=== PATIENT | female | born 1995 | race Caucasian/White ===

== ENCOUNTER 2017-03-18 21:39 | Emergency (ER) | payer MEDICAID ==
[~2017-03-18] VITALS: Ht 165.1 cm; Wt 55.0 kg
[~2017-03-18 21:39] MED LIST: IBUP800T23 PO; ROBA500T PO
[2017-03-18 21:51] VITALS: BP 132/78; PULSE 87; RESP 20; TEMP 97.8; O2SAT 100
[2017-03-18 22:01] VITALS: BP 116/69; PULSE 85; RESP 18; TEMP 98.8; O2SAT 100
[2017-03-19] MEDS ORDERED: KETOROLAC TROMETHAMINE 30 MG/ML (IVP) VIAL IVP ONE (00:15)
--- NOTE | 2017-03-19 00:24 | PD ---
HPI Chief Complaint: Alcohol/Drug Intoxication Time Seen by Provider: 22:50 Travel History International Travel<30 days: No Contact w/Intl Traveler<30days: No Traveled to known affect area: No History of Present Illness HPI To 21 year-old woman presents emergency department for medical evaluation for psychiatric and IV drug abuse treatment. She is under a Car today order for involuntary treatment. She was taken to [facility] for sent here after was revealed that she has partially treated with endocarditis. She reports that in January she was in [facility] were she completed inpatient IV antibiotics, but only about 30-45 days of an anticipated 60 day outpatient treatment regimen for IV antibiotics. She states she started using again and was to "dope sick" or "high" to go get her antibiotics. She does endorse subjective chills over the past several days. History Past Medical History Narrative Medical Active IV drug use History of recent endocarditis, partially treated Tetanus Vaccination: Unknown Influenza Vaccination: No : 1 Para: 1 Social History Alcohol Use: No Tobacco Use: Yes (1 PPD) Allergies-Medications (Allergen,Severity, Reaction): Coded Allergies: No Known Allergies (Verified , 03/18/17) Reported Meds & Prescriptions Reported Meds & Active Scripts Active No Active Prescriptions or Reported Medications Review of Systems Except as stated in HPI: all other systems reviewed are Neg Physical Exam Narrative GENERAL: 21 year-old woman, no acute distress. SKIN: Focused skin assessment warm/dry. NECK: Trachea midline. No JVD. CARDIOVASCULAR: Regular rate and rhythm. Soft blowing systolic murmur. RESPIRATORY: No accessory muscle use. Clear to auscultation. Breath sounds equal bilaterally. GASTROINTESTINAL: Abdomen soft, non-tender, nondistended. Hepatic and splenic margins not palpable. MUSCULOSKELETAL: No obvious deformities. No edema. NEUROLOGICAL: Awake and alert. No obvious cranial nerve deficits. Motor grossly within normal limits. Normal speech. PSYCHIATRIC: Appropriate mood and affect; insight and judgment normal. Data Data Last Documented VS Vital Signs Date Time Temp Pulse Resp B/P Pulse Ox O2 Delivery O2 Flow Rate FiO2 03/18/17 22:02 85 03/18/17 22:01 98.8 18 116/69 100 Orders Complete Blood Count With Diff (03/18/17 22:50) Comprehensive Metabolic Panel (03/18/17 22:50) Westergren Sedimentation Rate (03/18/17 22:50) C-Reactive Protein (Crp) (03/18/17 22:50) Iv Access Insert/Monitor (03/18/17 22:50) Blood Culture (03/18/17 22:50) Drug Screen, Random Urine (03/19/17 00:04) Ed Urine Pregnancytest Poc (03/19/17 00:04) Ketorolac Inj (Toradol Inj) (03/19/17 00:15) Chest, Single Ap (03/19/17 ) Labs Laboratory Tests Test 03/18/17 03/19/17 23:34 00:06 White Blood Count 7.1 TH/MM3 Red Blood Count 4.31 MIL/MM3 Hemoglobin 12.2 GM/DL Hematocrit 35.8 % Mean Corpuscular Volume 83.0 FL Mean Corpuscular Hemoglobin 28.4 PG Mean Corpuscular Hemoglobin 34.2 % Concent Red Cell Distribution Width 14.5 % Platelet Count 198 TH/MM3 Mean Platelet Volume 9.9 FL Neutrophils (%) (Auto) 57.3 % Lymphocytes (%) (Auto) 30.9 % Monocytes (%) (Auto) 8.6 % Eosinophils (%) (Auto) 2.7 % Basophils (%) (Auto) 0.5 % Neutrophils # (Auto) 4.1 TH/MM3 Lymphocytes # (Auto) 2.2 TH/MM3 Monocytes # (Auto) 0.6 TH/MM3 Eosinophils # (Auto) 0.2 TH/MM3 Basophils # (Auto) 0.0 TH/MM3 CBC Comment DIFF FINAL Differential Comment Erythrocyte Sedimentation Rate 25 mm/hr Sodium Level 138 MEQ/L Potassium Level 4.2 MEQ/L Chloride Level 105 MEQ/L Carbon Dioxide Level 26.2 MEQ/L Anion Gap 7 MEQ/L Blood Urea Nitrogen 17 MG/DL Creatinine 0.82 MG/DL Estimat Glomerular Filtration 88 ML/MIN Rate Random Glucose 94 MG/DL Calcium Level 8.9 MG/DL Total Bilirubin 0.2 MG/DL Aspartate Amino Transf 25 U/L (AST/SGOT) Alanine Aminotransferase 16 U/L (ALT/SGPT) Alkaline Phosphatase 62 U/L C-Reactive Protein 0.59 MG/DL Total Protein 7.8 GM/DL Albumin 3.5 GM/DL Urine Opiates Screen POS Urine Barbiturates Screen NEG Urine Amphetamines Screen NEG Urine Benzodiazepines Screen NEG Urine Cocaine Screen POS Urine Cannabinoids Screen POS [facility] Medical Decision Making Medical Screen Exam Complete: Yes Emergency Medical Condition: Yes Interpretation(s) LABS: CBC unremarkable. Sed Rate 25 BMP unremarkable. CRP 0.59. Coags positive for opiates, cocaine, cannabinoids. Chest x-ray negative. Differential Diagnosis Active IV drug use, depression, endocarditis or bacteremia, other Narrative Course Medical decision-making 21 year-old woman presents to the emergency department under an ex-Parte order for involuntary treatment sent to the ED because of history of recent partially treated endocarditis. Patient looks generally well. She has ever murmur. No fever. No tachycardia. We'll check labs, cultures, inflammatory markers. If negative, we'll medically clear for psych. If abnormal, will admit to medicine and psychiatric consult. FINAL: CBC normal, inflmatory markers with minimal elevation. Medically clear for substance abuse treatment. Recommend outpatient follow up. Will call if cultures positive. Diagnosis Primary Impression: Substance abuse Scripts No Active Prescriptions or Reported Meds Sherman Gonzalez MD Mar 19, 2017 00:24
[2017-03-19 00:35] LABS: AUTOMATED NEUTROPHIL # 4.1 TH/MM3 (1.8-7.7); BASOPHIL % 0.5 % (0.0-2.0); EOSINOPHIL # 0.2 TH/MM3 (0-0.4); EOSINOPHIL % 2.7 % (0.0-4.0); HEMATOCRIT 35.8 % (35.0-46.0); HEMO FLAGS DIFF FINAL; LYMPH % 30.9 % (9.0-44.0); LYMPHOCYTE # 2.2 TH/MM3 (1.0-4.8); MEAN CORPUSCULAR HEMOGLOBIN 28.4 PG (27.0-34.0); MEAN CORPUSCULAR HGB CONC 34.2 % (32.0-36.0); MONO % 8.6 % (0.0-8.0); NEUT % 57.3 % (16.0-70.0); PLATELET COUNT 198 TH/MM3 (150-450); RED BLOOD COUNT 4.31 MIL/MM3 (4.00-5.30); RED CELL DISTRIBUTION WIDTH 14.5 % (11.6-17.2); WHITE BLOOD COUNT 7.1 TH/MM3 (4.0-11.0)
[2017-03-19 00:42] LABS: AMPHETAMINE, URINE NEG (NEG); BARBITURATES, URINE NEG (NEG); COCAINE, URINE POS (NEG)
[2017-03-19 00:56] LABS: ALT (GPT) 16 U/L (10-53)
[2017-03-19 00:58] LABS: ALKALINE PHOSPHATASE 62 U/L (45-117); ANION GAP 7 MEQ/L (5-15); AST (GOT) 25 U/L (15-37); BICARBONATE 26.2 MEQ/L (21.0-32.0); BLOOD UREA NITROGEN 17 MG/DL (7-18); CHLORIDE 105 MEQ/L (98-107); GLOMERULAR FILTRATION RATE 88 ML/MIN (>89); POTASSIUM 4.2 MEQ/L (3.5-5.1); SODIUM (NA) 138 MEQ/L (136-145); TOTAL BILIRUBIN ADULT 0.2 MG/DL (0.2-1.0)
--- NOTE | 2017-03-19 01:05 | RADRPT ---
EXAM DATE/TIME: 03/19/2017 00:50 [place] COMPARISON: No previous studies available for comparison. INDICATIONS : Short of breath. MEDICAL HISTORY : None. SURGICAL HISTORY : None. ENCOUNTER: Initial ACUITY: 1 day PAIN SCORE: 0/10 LOCATION: Bilateral chest FINDINGS: A single view of the chest demonstrates the lungs to be symmetrically aerated without evidence of mas s, infiltrate or effusion. The cardiomediastinal contours are unremarkable. Osseous structures are intact. CONCLUSION: No acute disease. Wiliam Serna MD on March 19, 2017 at 1:04 Board Certified Radiologist. This report was verified electronically.
[2017-03-19 05:57] VITALS: BP 108/58; PULSE 77; RESP 16
[2017-03-19 07:00] VITALS: BP 112/62; PULSE 74; RESP 16; TEMP 98; O2SAT 99
[2017-03-19 15:35] VITALS: BP 112/62; TEMP 98.3
--- NOTE | 2017-03-19 15:40 | PD ---
History of Present Illness Chief Complaint: Alcohol/Drug Intoxication Time Seen by Provider: 15:45 Travel History International Travel<30 Days: No Contact w/Intl Traveler<30days: No Known affected area: No Legal Status Legal Status: Ex Parte José Act Signed By: [facility] History of Present Illness: 21-year-old female with self-admitted history of drug abuse, including IV drug abuse. She is currently in the midst of a two-month regimen of IV antibiotic therapy for endocarditis. She lives with her mother but his supported by both her mother and her grandmother who live locally. She also has a 4-year-old child. She interrupted her antibiotic therapy because she started using drugs again and currently admits to polysubstance abuse. She was seen at [facility] earlier today but not accepted there because of her IV antibiotic therapy. Currently, the patient denies any suicidal or homicidal ideation, plan or intent. She would like to finish her IV antibiotic therapy. She feels supported by her mother and grandmother but does not understand why her mother initiated this ex-partake order. This physician feels, after evaluation, the patient should continue with IV antibiotic therapy prior to attempting any detox or rehabilitation. PFSH Past Medical History ADHD: No Anxiety: Yes Depression: Yes Cancer: No Cardiovascular Problems: Yes Diabetes: No Diminished Hearing: No Musculoskeletal: Yes (CHRONIC BACK PAIN) Psychiatric: No Immunizations Current: Yes Migraines: No Seizures: No Thyroid Disease: No Ulcer: No Tetanus Vaccination: Unknown Influenza Vaccination: No ?: Unknown : 1 Para: 1 Miscarriage: 0 : 0 Past Surgical History Other Surgery: No Psychiatric History Psychiatric History Hx Psychiatric Treatment: DEPRESSION/ANXIETY History of Inpatient Treatment: No Guns or firearms in home: No Social History Hx Alcohol Use: No Hx Tobacco Use: Yes (1 PPD) Hx Substance Use: Yes Substance Use Type: Crack, Marijuana, Cocaine, Synth Opiates-Pain Pills Other Substances Used: PT. ONLY ADMITS TO [facility] DAILY Hx of Substance Use Treatment: Yes Allergies-Medications (Allergen,Severity, Reaction): Coded Allergies: No Known Allergies (Verified , 03/18/17) Reported Meds & Prescriptions Reported Meds & Active Scripts Active No Active Prescriptions or Reported Medications Review of Systems Except as stated in HPI: all other systems reviewed are Neg Exam Alert: Yes [place]: Person, Place, Date, Situation Mood: Calm Affect: Appropriate Speech: Clear, Logical Eye Contact: Normal Memory Intact: Immediate, Recent, Remote Insight/Judgement Adequate MDM Medical Decision Making Medical Record Reviewed: Yes Assessment/Plan Patient's chart was reviewed and this physician spoke with the patient's nurse regarding her condition. This physician feels strongly the patient needs to continue to undergo IV antibiotic therapy to prevent her endocarditis from causing greater cardiac arm. Patient agrees with this assessment and wants to continue with outpatient IV therapy. At this time, this physician does not feel the patient should be admitted for detox and rehabilitation. She furthermore does not qualify for psychiatric hospitalization. She is not suicidal or homicidal and she is able to care for herself and wants to care for herself. Therefore, her ex-partner he is being discontinued and she is being discharged home. Orders Complete Blood Count With Diff (03/18/17 22:50) Comprehensive Metabolic Panel (03/18/17 22:50) Westergren Sedimentation Rate (03/18/17 22:50) C-Reactive Protein (Crp) (03/18/17 22:50) Iv Access Insert/Monitor (03/18/17 22:50) Blood Culture (03/18/17 22:50) Drug Screen, Random Urine (03/19/17 00:04) Ed Urine Pregnancytest Poc (03/19/17 00:04) Ketorolac Inj (Toradol Inj) (03/19/17 00:15) Chest, Single Ap (03/19/17 ) Diet Regular Basic (03/19/17 Breakfast) Psych Screen (03/19/17 07:33) Diet Regular Basic (03/19/17 Dinner) Results Vital Signs Date Time Temp Pulse Resp B/P Pulse Ox O2 Delivery O2 Flow Rate FiO2 03/19/17 07:00 Room Air 03/19/17 07:00 98.0 74 16 112/62 99 Room Air 03/19/17 05:57 77 16 108/58 Room Air 03/18/17 22:02 85 03/18/17 22:01 98.8 85 18 116/69 100 03/18/17 21:51 97.8 87 20 132/78 100 Laboratory Tests Test 03/18/17 03/19/17 23:34 00:06 White Blood Count 7.1 Red Blood Count 4.31 Hemoglobin 12.2 Hematocrit 35.8 Mean Corpuscular Volume 83.0 Mean Corpuscular Hemoglobin 28.4 Mean Corpuscular Hemoglobin 34.2 Concent Red Cell Distribution Width 14.5 Platelet Count 198 Mean Platelet Volume 9.9 Neutrophils (%) (Auto) 57.3 Lymphocytes (%) (Auto) 30.9 Monocytes (%) (Auto) 8.6 Eosinophils (%) (Auto) 2.7 Basophils (%) (Auto) 0.5 Neutrophils # (Auto) 4.1 Lymphocytes # (Auto) 2.2 Monocytes # (Auto) 0.6 Eosinophils # (Auto) 0.2 Basophils # (Auto) 0.0 CBC Comment DIFF FINAL Differential Comment Erythrocyte Sedimentation Rate 25 Sodium Level 138 Potassium Level 4.2 Chloride Level 105 Carbon Dioxide Level 26.2 Anion Gap 7 Blood Urea Nitrogen 17 Creatinine 0.82 Estimat Glomerular Filtration 88 Rate Random Glucose 94 Calcium Level 8.9 Total Bilirubin 0.2 Aspartate Amino Transf 25 (AST/SGOT) Alanine Aminotransferase 16 (ALT/SGPT) Alkaline Phosphatase 62 C-Reactive Protein 0.59 Total Protein 7.8 Albumin 3.5 Urine Opiates Screen POS Urine Barbiturates Screen NEG Urine Amphetamines Screen NEG Urine Benzodiazepines Screen NEG Urine Cocaine Screen POS Urine Cannabinoids Screen POS Date/Time Procedure Status Source Growth 03/18/17 23:55 Aerobic Blood Culture Received Blood Peripheral Pending 03/18/17 23:55 Anaerobic Blood Culture Received Blood Peripheral Pending Diagnosis Primary Impression: Adjustment disorder with mixed disturbance of emotions and conduct Additional Impression: Opiate abuse, continuous Departure Forms: Tests/Procedures Patient Instructions: General Instructions, Cocaine Abuse (ED), Narcotic Abuse (ED) Additional Instructions: DISCHARGE HOME DIAGNOSIS OPIATE AND COCAINE ABUSE FOLLOW-UP WITH PCP TO COMPLETE YOUR IV ANTIBIOTICS FOR ENDOCARDITIS. THIS IS NEEDED IN ORDER TO GET INTO A DRUG TREATMENT PROGRAM RETURN TO ED FOR WORSENING PROBLEMS Prescriptions No Active Prescriptions or Reported Meds Disposition: 01 DISCHARGE HOME Condition: Stable Problem Qualifiers Nicolás Neal MD Mar 19, 2017 15:40
== END 2017-03-19 16:17 | disposition home or self-care (01) ==
LOC: NEPD 21:39 → NEPJ 03-19 16:17
DX: Z02.89 Encounter for other administrative examinations (principal); F43.29 Adjustment disorder with other symptoms; F11.10 Opioid abuse, uncomplicated; I38 Endocarditis, valve unspecified; Z79.2 Long term (current) use of antibiotics; F17.290 Nicotine dependence, other tobacco product, uncomplicated
CPT/HCPCS: 71010; 80053; 80307; 84703; 85025; 85652; 86140; 87040; 96374; 99284; J1885

== ENCOUNTER 2017-04-21 12:15 | Emergency (ER) | payer SELFPAY ==
[~2017-04-21] VITALS: Ht 165.1 cm; Wt 60.0 kg
[2017-04-21 12:17] VITALS: BP 109/58; PULSE 72; RESP 20; TEMP 97.7; O2SAT 99
--- NOTE | 2017-04-21 12:55 | PD ---
HPI Chief Complaint: Electronics [employer] Problem/Complaint Time Seen by Provider: 12:33 Travel History International Travel<30 days: No Contact w/Intl Traveler<30days: No Traveled to known affect area: No History of Present Illness HPI The patient was seen and examined in the presence of the nurse. This patient complains of vaginal discharge and some pelvic cramping. She has history of chlamydia and fears it may have returned. She denies fever. Symptoms severity is moderate. No alleviating factors. Duration 2 days PFSH Past Medical History ADHD: No Anxiety: Yes Depression: Yes Cancer: No Cardiovascular Problems: Yes Diabetes: No Diminished Hearing: No Musculoskeletal: Yes (CHRONIC BACK PAIN) Psychiatric: No Immunizations Current: Yes Migraines: No Seizures: No Thyroid Disease: No Ulcer: No ?: Not : 1 Para: 1 Miscarriage: 0 : 0 Past Surgical History Other Surgery: No Social History Alcohol Use: No Tobacco Use: Yes (1 PPD) Substance Use: Yes Allergies-Medications (Allergen,Severity, Reaction): Coded Allergies: No Known Allergies (Verified , 03/18/17) Reported Meds & Prescriptions Reported Meds & Active Scripts Active No Active Prescriptions or Reported Medications Review of Systems General / Constitutional: No: Fever Eyes: No: Visual changes HENT: No: Headaches Cardiovascular: No: Chest Pain or Discomfort Respiratory: No: Shortness of Breath Gastrointestinal: No: Abdominal Pain Genitourinary: Positive: Pelvic Pain, Discharge, No: Dysuria Musculoskeletal: No: Pain Skin: No Rash Neurologic: No: Weakness Psychiatric: No: Depression Endocrine: No: Polydipsia Hematologic/Lymphatic: No: Easy Bruising Physical Exam Narrative GENERAL: Well-nourished, well-developed patient in no apparent distress. SKIN: Focused skin assessment reveals no rash and nodules. Skin is Warm and dry. HEAD: Atraumatic. Normocephalic. EYES: Pupils equal and round. No scleral icterus. No injection or drainage. ENT: No nasal bleeding or discharge. Mucous membranes pink and moist. NECK: Trachea midline. No JVD. CARDIOVASCULAR: Regular rate and rhythm. No murmur appreciated. RESPIRATORY: No accessory muscle use. Clear to auscultation. Breath sounds equal bilaterally. GASTROINTESTINAL: Abdomen soft, non-tender, nondistended. Hepatic and splenic margins not palpable. MUSCULOSKELETAL: No obvious deformities. No clubbing. No cyanosis. No edema. NEUROLOGICAL: Awake and alert. No obvious cranial nerve deficits. Motor grossly within normal limits. Normal speech. PSYCHIATRIC: Appropriate mood and affect; insight and judgment normal. Pelvic: No blood or discharge seen. No cervical motion tenderness. GC and chlamydia swab done Data Data Last Documented VS Vital Signs Date Time Temp Pulse Resp B/P (MAP) Pulse Ox O2 Delivery O2 Flow Rate FiO2 04/21/17 12:17 97.7 72 20 109/58 (75) 99 Room Air Orders Orders Gc And Chlamydia Pcr (04/21/17 12:40) Wet Prep Profile (04/21/17 12:40) Ed Urine Pregnancytest Poc (04/21/17 12:40) MDM Medical Decision Making Medical Screen Exam Complete: Yes Emergency Medical Condition: Yes Medical Record Reviewed: Yes Differential Diagnosis Chlamydia, gonorrhea, nonspecific discharge Narrative Course I have reviewed the patient's electronic medical record. Patient's been here before for vaginal complaints No objective findings on exam but she is convinced that she has Chlamydia Swab was sent but pending at time of discharge I gave her injection of Rocephin and 2 g of Zithromax Urine is negative Diagnosis Primary Impression: Vaginitis Qualified Codes: N76.0 - Acute vaginitis Additional Instructions: The patient was advised to follow up with their physician and return if they worsen. Med/Other Pt SpecificInfo: Other Scripts No Active Prescriptions or Reported Meds Disposition: 01 DISCHARGE HOME Condition: Stable Frnak Galeana MD Apr 21, 2017 12:55
[2017-04-21] MEDS ORDERED: AZITHROMYCIN PWD FOR SUSP 1 GM PACKET PO ONE (13:00)
[2017-04-21] MEDS ORDERED: LIDOCAINE HCL 1% PF 30 ML VIAL XX ONE (13:00)
[2017-04-21 16:38] LABS: CHLAMYDIA PCR NOT DETECTED (NOT DETECT); NEISSERIA PCR NOT DETECTED (NOT DETECT)
== END 2017-04-21 13:59 | disposition home or self-care (01) ==
LOC: NEPD 12:15
DX: N76.0 Acute vaginitis (principal); F17.200 Nicotine dependence, unspecified, uncomplicated
CPT/HCPCS: 84703; 87491; 87591; 96372; 99284; J0696

== ENCOUNTER 2017-05-04 11:52 | Emergency (ER) | payer SELFPAY ==
[~2017-05-04] VITALS: Ht 165.1 cm; Wt 60.0 kg
[2017-05-04 11:54] VITALS: BP 106/70; PULSE 84; RESP 20; TEMP 99.2; O2SAT 100
--- NOTE | 2017-05-04 12:00 | PD ---
Physical Exam Date Seen by Provider: May 04, 2017 Time Seen by Provider: 11:58 Narrative 21-year-old female presents to emergency Department with right dorsal lateral wrist and some pain. Pain has been ongoing and worsening over the past 3 weeks. 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 Pain is now a 7 out of 10. Patient denies numbness. It is worse with movement and gripping of the thumb. Denies fever or other symptoms. Vital signs stable. Patient is awaiting bed placement. Data Data Last Documented VS Vital Signs Date Time Temp Pulse Resp B/P (MAP) Pulse Ox O2 Delivery O2 Flow Rate FiO2 05/04/17 11:54 99.2 84 20 106/70 (82) 100 Room Air MDM Medical Record Reviewed: Yes Supervised Visit with DARYL: Yes Scripts No Active Prescriptions or Reported Meds Condition: Stable Wilbur Espinoza May 04, 2017 12:00
== END 2017-05-04 13:56 | disposition left against medical advice (07) ==
LOC: NEPD 11:52
DX: M25.531 Pain in right wrist (principal)
CPT/HCPCS: 99281

== ENCOUNTER 2018-01-19 03:06 | Emergency (ER) | payer OTHER ==
[2018-01-19 03:12] VITALS: BP 137/85; PULSE 80; RESP 16; TEMP 97.7; O2SAT 100
[2018-01-19] MEDS ORDERED: METH40TA PO (03:18)
--- NOTE | 2018-01-19 03:26 | PD ---
HPI Chief Complaint: Psychiatric Symptoms Time Seen by Provider: 03:24 Travel History International Travel<30 days: No Contact w/Intl Traveler<30days: No Traveled to known affect area: No History of Present Illness HPI 22-year-old female presents under José act [place] by the [employer]. Patient reports that she became involved in an argument with her mother and she sent some vague suicidal text to her mother. She was then placed under José act. Symptoms are moderate, aggravated by arguing with her mother with no relieving factors. During review of systems she does report chest pain. She describes as a sharp pain in the vulvar chest which is worse with deep inspiration, worse with anxiety and worse with palpation of the chest wall. This is been ongoing for the past month. She denies shortness of breath, cough , nausea, vomiting, abdominal pain, fevers. Remote history of IV drug use. She is a smoker. She also uses marijuana and methadone. No other complaints at this time. PFSH Past Medical History ADHD: No Anxiety: Yes Depression: Yes Cancer: No Cardiovascular Problems: Yes (ENDOCARDITIS) Diabetes: No Diminished Hearing: No Musculoskeletal: Yes (CHRONIC BACK PAIN) Psychiatric: No Immunizations Current: Yes Migraines: No Seizures: No Thyroid Disease: No Ulcer: No ?: Unknown : 1 Para: 1 Miscarriage: 0 : 0 Past Surgical History Surgical History: No Previous Surgery Other Surgery: No Social History Alcohol Use: No Tobacco Use: Yes (1 PPD) Substance Use: Yes (MARIJUANA) Allergies-Medications (Allergen,Severity, Reaction): Coded Allergies: No Known Allergies (Verified , 05/04/17) Reported Meds & Prescriptions Reported Meds & Active Scripts Active Reported Methadone (Methadone HCl) 40 Mg Tab 120 Mg PO DAILY Review of Systems Except as stated in HPI: all other systems reviewed are Neg Physical Exam Narrative GENERAL: Well-developed well-nourished female no acute distress SKIN: Warm and dry. HEAD: Atraumatic. Normocephalic. EYES: Pupils equal and round. No scleral icterus. No injection or drainage. ENT: No nasal bleeding or discharge. Mucous membranes pink and moist. NECK: Trachea midline. No JVD. CARDIOVASCULAR: Regular rate and rhythm. No murmur appreciated. RESPIRATORY: No accessory muscle use. Clear to auscultation. Breath sounds equal bilaterally. GASTROINTESTINAL: Abdomen soft, non-tender, nondistended. Hepatic and splenic margins not palpable. MUSCULOSKELETAL: No obvious deformities. Some tenderness to palpation of the chest wall. There is no lower extremity edema. NEUROLOGICAL: Awake and alert. No obvious cranial nerve deficits. Motor grossly within normal limits. Normal speech. PSYCHIATRIC: Appropriate mood and affect; insight and judgment normal. Data Data Last Documented VS Vital Signs Date Time Temp Pulse Resp B/P (MAP) Pulse Ox O2 Delivery O2 Flow Rate FiO2 01/19/18 03:44 99 Room Air 01/19/18 03:12 97.7 80 16 137/85 (102) Orders Orders Electrocardiogram (01/19/18 03:24) Ckmb (Isoenzyme) Profile (01/19/18 03:24) Complete Blood Count With Diff (01/19/18:24) Magnesium (Mg) (01/19/18:24) Prothrombin Time / Inr (Pt) (01/19/18:24) Act Partial Throm Time (Ptt) (01/19/18 03:24) Troponin I (01/19/18 03:24) Ecg Monitoring (01/19/18:24) Iv Access Insert/Monitor (01/19/18 03:24) Oximetry (01/19/18 03:24) Oxygen Administration (01/19/18 03:24) Sodium Chloride 0.9% Flush (Ns Flush) (01/19/18 03:30) Chest, Pa & Lat (01/19/18 03:24) Ed Urine Pregnancytest Poc (01/19/18 03:24) Thyroid Stimulating Hormone (01/19/18 03:24) Psych Screen (01/19/18 03:24) Drug Screen, Random Urine (01/19/18 03:24) Alcohol (Ethanol) (01/19/18 03:24) Beta Hcg (Quant/Titer) (01/19/18 03:24) D-Dimer (01/19/18 03:24) Comprehensive Metabolic Panel (01/19/18 03:42) CKMB (01/19/18 03:42) CKMB% (01/19/18 03:42) Sodium Polysty Sulfate Liq (Kayexalate L (01/19/18 04:45) Labs Laboratory Tests Test 01/19/18 03:42 White Blood Count 7.8 TH/MM3 Red Blood Count 4.69 MIL/MM3 Hemoglobin 13.2 GM/DL Hematocrit 38.7 % Mean Corpuscular Volume 82.4 FL Mean Corpuscular Hemoglobin 28.1 PG Mean Corpuscular Hemoglobin Concent 34.1 % Red Cell Distribution Width 14.6 % Platelet Count 179 TH/MM3 Mean Platelet Volume 9.6 FL Neutrophils (%) (Auto) 72.2 % Lymphocytes (%) (Auto) 19.1 % Monocytes (%) (Auto) 8.1 % Eosinophils (%) (Auto) 0.5 % Basophils (%) (Auto) 0.1 % Neutrophils # (Auto) 5.6 TH/MM3 Lymphocytes # (Auto) 1.5 TH/MM3 Monocytes # (Auto) 0.6 TH/MM3 Eosinophils # (Auto) 0.0 TH/MM3 Basophils # (Auto) 0.0 TH/MM3 CBC Comment DIFF FINAL Differential Comment Prothrombin Time 10.3 SEC Prothromb Time International Ratio 1.0 RATIO Activated Partial Thromboplast Time 27.3 SEC D-Dimer Quantitative (PE/DVT) 0.38 MG/L FEU Blood Urea Nitrogen 12 MG/DL Creatinine 0.85 MG/DL Random Glucose 81 MG/DL Albumin 3.7 GM/DL Calcium Level 8.6 MG/DL Magnesium Level 2.0 MG/DL Aspartate Amino Transf (AST/SGOT) 68 U/L Alanine Aminotransferase (ALT/SGPT) 36 U/L Sodium Level 136 MEQ/L Potassium Level 5.4 MEQ/L Chloride Level 107 MEQ/L Carbon Dioxide Level 19.8 MEQ/L Anion Gap 9 MEQ/L Estimat Glomerular Filtration Rate 84 ML/MIN Total Creatine Kinase 219 U/L Troponin I LESS THAN 0.02 NG/ML Thyroid Stimulating Hormone 3rd Gen 1.260 uIU/ML Human Chorionic Gonadotropin, Quant LESS THAN 1 MIU/ML Ethyl Alcohol Level LESS THAN 3 MG/DL [facility] Medical Decision Making Medical Screen Exam Complete: Yes Emergency Medical Condition: Yes Medical Record Reviewed: Yes Differential Diagnosis Adjustment reaction, acute psychosis, major depressive disorder, substance- induced mood disorder Costochondritis, pericarditis, myocarditis, pulmonary embolism, endocarditis, pleurisy, pneumothorax Narrative Course 20-year-old female presents under José act for psychiatric evaluation. She is also complaining of sharp pleuritic chest pain for the past month which is worse when she is anxious. It is reproducible with palpation of her chest wall. Her vital signs are reassuring. She is not tachycardic, hypoxic, she is afebrile. She has no appreciable murmur. No lower extremity edema. The patient was placed on ECG monitoring pulse oximetry. 12 EKG was obtained. Lab work, chest x-ray will be obtained. Mental health screening discussed with the patient. Psychiatric screen ordered. EKG reveals sinus rhythm, rate 80. CBC reveals no acute abnormalities. D- dimer is within normal limits. CMP reveals a potassium of 5.4, otherwise unremarkable. Kayexalate will be administered. Total CK is 219. Troponin is less than 0.02. TSH is within normal limits. Quantitative beta-hCG is less than 1. Alcohol level is negative. The patient's chest pain appears musculoskeletal as it is reproducible with palpation of the chest wall. Chest x- ray does not a small nodule on the lateral film which the radiologist notes could be a small area of rounded pneumonia. The patient has no clinical symptoms do not suggest pneumonia. The patient is medically cleared. Diagnosis Primary Impression: Medical clearance for psychiatric admission Dariel Yates Jan 19, 2018 03:26
[2018-01-19] MEDS ORDERED: SODIUM CHLORIDE 0.9% FLUSH 10 ML FLUSH IVF PRN (03:30)
[2018-01-19 03:44] VITALS: O2SAT 99
--- NOTE | 2018-01-19 04:07 | RADRPT ---
EXAM DATE: 01/19/2018 4:00 AM EDT AGE/SEX: 22 years / Female INDICATIONS: Chest and back pain. CLINICAL DATA: This is the patient's initial encounter. Patient reports that signs and symptoms have been present for 1 day and indicates a pain score of 5/10. MEDICAL/SURGICAL HISTORY: . Anxiety None. COMPARISON: No prior exams available for comparison. FINDINGS: PA and lateral views of the chest demonstrate the lungs to be symmetrically aerated without evidence of effusion. On the lateral film is a questionable 1.6 cm mass overlying the posterior middle medias tinum could be a pulmonary nodule, obviously unusual for a 22-year-old The cardiomediastinal contours are unremarkable. Osseous structures are intact. CONCLUSION: Small nodule on the lateral film could be a small area of rounded pneumonia. The rest of the lungs ar e clear. Electronically signed by: Sherman Coats MD 01/19/2018 4:06 AM EDT
[2018-01-19 04:10] LABS: AUTOMATED NEUTROPHIL # 5.6 TH/MM3 (1.8-7.7); BASOPHIL % 0.1 % (0.0-2.0); EOSINOPHIL % 0.5 % (0.0-4.0); HEMATOCRIT 38.7 % (35.0-46.0); HEMOGLOBIN 13.2 GM/DL (11.6-15.3); LYMPH % 19.1 % (9.0-44.0); LYMPHOCYTE # 1.5 TH/MM3 (1.0-4.8); MEAN CELL VOLUME 82.4 FL (80.0-100.0); MEAN CORPUSCULAR HEMOGLOBIN 28.1 PG (27.0-34.0); MEAN CORPUSCULAR HGB CONC 34.1 % (32.0-36.0); MEAN PLATELET VOLUME 9.6 FL (7.0-11.0); MONO % 8.1 % (0.0-8.0); MONOCYTE # 0.6 TH/MM3 (0-0.9); NEUT % 72.2 % (16.0-70.0); PLATELET COUNT 179 TH/MM3 (150-450); RED BLOOD COUNT 4.69 MIL/MM3 (4.00-5.30); RED CELL DISTRIBUTION WIDTH 14.6 % (11.6-17.2); WHITE BLOOD COUNT 7.8 TH/MM3 (4.0-11.0)
[2018-01-19 04:22] LABS: PROTHROMBIN TIME - PATIENT 10.3 SEC (9.8-11.6)
[2018-01-19 04:24] LABS: D-DIMER 0.38 MG/L FEU (0.00-0.50)
[2018-01-19 04:39] LABS: ALBUMIN 3.7 GM/DL (3.4-5.0); ALT (GPT) 36 U/L (10-53); AST (GOT) 68 U/L (15-37); BICARBONATE 19.8 MEQ/L (21.0-32.0); BLOOD UREA NITROGEN 12 MG/DL (7-18); CALCIUM 8.6 MG/DL (8.5-10.1); CHLORIDE 107 MEQ/L (98-107); CREATININE 0.85 MG/DL (0.50-1.00); GLOMERULAR FILTRATION RATE 84 ML/MIN (>89); GLUCOSE,RANDOM 81 MG/DL (74-106); SODIUM (NA) 136 MEQ/L (136-145); TROPONIN I LESS THAN 0.02 NG/ML (0.02-0.05)
[2018-01-19] MEDS ORDERED: SODIUM POLYSTYRENE SULFONATE SUSP 15 GM/60 ML CUP PO ONE (04:45)
[2018-01-19 04:49] LABS: ALKALINE PHOSPHATASE 73 U/L (45-117); TOTAL BILIRUBIN ADULT 0.4 MG/DL (0.2-1.0)
[2018-01-19 09:35] VITALS: BP 113/64; PULSE 77; RESP 18; O2SAT 97
--- NOTE | 2018-01-19 09:37 | PD ---
Physical Exam Time Seen by Provider: 09:35 Narrative Please refer to previous providers documentation for details surrounding the patient's current visit. Data Data Last Documented VS Vital Signs Date Time Temp Pulse Resp B/P (MAP) Pulse Ox O2 Delivery O2 Flow Rate FiO2 01/19/18 03:44 99 Room Air 01/19/18 03:12 97.7 80 16 137/85 (102) Orders Orders Electrocardiogram (01/19/18 03:24) Ckmb (Isoenzyme) Profile (01/19/18 03:24) Complete Blood Count With Diff (01/19/18 03:24) Magnesium (Mg) (01/19/18 03:24) Prothrombin Time / Inr (Pt) (01/19/18 03:24) Act Partial Throm Time (Ptt) (01/19/18 03:24) Troponin I (01/19/18 03:24) Ecg Monitoring (01/19/18 03:24) Iv Access Insert/Monitor (01/19/18 03:24) Oximetry (01/19/18 03:24) Oxygen Administration (01/19/18 03:24) Sodium Chloride 0.9% Flush (Ns Flush) (01/19/18 03:30) Chest, Pa & Lat (01/19/18 03:24) Ed Urine Pregnancytest Poc (01/19/18 03:24) Thyroid Stimulating Hormone (01/19/18 03:24) Psych Screen (01/19/18 03:24) Drug Screen, Random Urine (01/19/18 03:24) Alcohol (Ethanol) (01/19/18 03:24) Beta Hcg (Quant/Titer) (01/19/18 03:24) D-Dimer (01/19/18 03:24) Comprehensive Metabolic Panel (01/19/18 03:42) CKMB (01/19/18 03:42) CKMB% (01/19/18 03:42) Sodium Polysty Sulfate Liq (Kayexalate L (01/19/18 04:45) Diet Regular Basic (01/19/18 Breakfast) Ed Discharge Order (01/19/18 09:34) Labs Laboratory Tests Test 01/19/18 03:42 White Blood Count 7.8 TH/MM3 Red Blood Count 4.69 MIL/MM3 Hemoglobin 13.2 GM/DL Hematocrit 38.7 % Mean Corpuscular Volume 82.4 FL Mean Corpuscular Hemoglobin 28.1 PG Mean Corpuscular Hemoglobin Concent 34.1 % Red Cell Distribution Width 14.6 % Platelet Count 179 TH/MM3 Mean Platelet Volume 9.6 FL Neutrophils (%) (Auto) 72.2 % Lymphocytes (%) (Auto) 19.1 % Monocytes (%) (Auto) 8.1 % Eosinophils (%) (Auto) 0.5 % Basophils (%) (Auto) 0.1 % Neutrophils # (Auto) 5.6 TH/MM3 Lymphocytes # (Auto) 1.5 TH/MM3 Monocytes # (Auto) 0.6 TH/MM3 Eosinophils # (Auto) 0.0 TH/MM3 Basophils # (Auto) 0.0 TH/MM3 CBC Comment DIFF FINAL Differential Comment Prothrombin Time 10.3 SEC Prothromb Time International Ratio 1.0 RATIO Activated Partial Thromboplast Time 27.3 SEC D-Dimer Quantitative (PE/DVT) 0.38 MG/L FEU Blood Urea Nitrogen 12 MG/DL Creatinine 0.85 MG/DL Random Glucose 81 MG/DL Total Protein 8.0 GM/DL Albumin 3.7 GM/DL Calcium Level 8.6 MG/DL Magnesium Level 2.0 MG/DL Alkaline Phosphatase 73 U/L Aspartate Amino Transf (AST/SGOT) 68 U/L Alanine Aminotransferase (ALT/SGPT) 36 U/L Total Bilirubin 0.4 MG/DL Sodium Level 136 MEQ/L Potassium Level 5.4 MEQ/L Chloride Level 107 MEQ/L Carbon Dioxide Level 19.8 MEQ/L Anion Gap 9 MEQ/L Estimat Glomerular Filtration Rate 84 ML/MIN Total Creatine Kinase 219 U/L Creatine Kinase MB 1.1 NG/ML Creatine Kinase MB % 0.5 % Troponin I LESS THAN 0.02 NG/ML Thyroid Stimulating Hormone 3rd Gen 1.260 uIU/ML Human Chorionic Gonadotropin, Quant LESS THAN 1 MIU/ML Ethyl Alcohol Level LESS THAN 3 MG/DL [facility] Medical Record Reviewed: Yes Supervised Visit with DARYL: No Narrative Course Patient is seen and evaluated by medical staff, evaluated by psychiatry, José act has been lifted. She will be discharged home at this time with no further medical needs. Diagnosis Primary Impression: Medical clearance for psychiatric admission Additional Impression: Adjustment disorder with mixed disturbance of emotions and conduct Disposition: 01 DISCHARGE HOME Condition: Stable Rebecca Ho Jan 19, 2018 09:37
--- NOTE | 2018-01-19 10:19 | PD ---
History of Present Illness Chief Complaint: Psychiatric Symptoms Time Seen by Provider: 09:35 Travel History International Travel<30 Days: No Contact w/Intl Traveler<30days: No Known affected area: No History of Present Illness: Patient is a 22-year-old female who was placed under a José act by [employer]. José act states Preeti's mother Virginia Funes advised that been asked and sent her suicidal text messages and she has in the past issues with drug abuse. Testing messages were observed from Preeti 's stating "you can see me again coming to identify my corpse" and "you deserve to suffer with my on your shoulders because you are the one who pushed me here. " Preeti admitted to sending the text messages per [employer] Act. 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 She states that while she was in group home her mother obtained custody of her child. She is trying to re-establish a relationship with her daughter which is not going well with her mom. She endorses no suicidal or homicidal ideations. She states that she will go back and live with her boyfriend and continue to work on the relationship with her daughter. Chart reviewed and discussed with nurse. Patient is in a hospital gown in room D 40. She is well groomed and well kept. Fund of knowledge good. Recent and remote memory intact. Motor and gait normal. Speech for normal rate, tone and volume. Insight and Judgement good. Patient denies SI/HI. Patient is at low risk for self harm or harming others. Based on her presentation, will lift José Act. Patient is committed to continuing the Methadone program. She and her boyfriend are two month clean and they are supporting each other through the process. I did give patient information on SMA if she wants to talk to someone about her anxiety. Dx: Adjustment disorder with disturbance of mood PFSH Past Medical History Narrative Medical Currently in methadone program. No past psychiatric care. ADHD: No Anxiety: Yes Depression: Yes Cancer: No Cardiovascular Problems: Yes (ENDOCARDITIS) Diabetes: No Diminished Hearing: No Musculoskeletal: Yes (CHRONIC BACK PAIN) Psychiatric: No Immunizations Current: Yes Migraines: No Seizures: No Thyroid Disease: No Ulcer: No ?: Unknown : 1 Para: 1 Miscarriage: 0 : 0 Past Surgical History Surgical History: No Previous Surgery Other Surgery: No Psychiatric History Psychiatric History Hx Psychiatric Treatment: DEPRESSION/ANXIETY History of Inpatient Treatment: No Social History Hx Alcohol Use: No Hx Tobacco Use: Yes (1 PPD) Hx Substance Use: Yes (MARIJUANA) Substance Use Type: Crack, Marijuana, Cocaine, Synth Opiates-Pain Pills Other Substances Used: PT. ONLY ADMITS TO [facility] DAILY Hx of Substance Use Treatment: Yes Allergies-Medications (Allergen,Severity, Reaction): Coded Allergies: No Known Allergies (Verified , 05/04/17) Reported Meds & Prescriptions Reported Meds & Active Scripts Active Reported Methadone (Methadone HCl) 40 Mg Tab 120 Mg PO DAILY Mental Status Examination Appearance: Appropriate Consciousness: Alert Orientation: x4 Motor Activity: Normal gait Speech: Unremarkable Language: Adequate Fund of Knowledge: Adequate Attention and Concentration: Adequate Memory: Unremarkable Mood: Appropriate Affect: Appropriate Thought Process & Associations: Intact Thought Content: Appropriate Hallucination Type: None Delusion Type: None Suicidal Ideation: No Suicidal Plan: No Suicidal Intention: No Homicidal Ideation: No Homicidal Plan: No Homicidal Intention: No Insight: Adequate Judgment: Adequate MDM Medical Decision Making Medical Record Reviewed: Yes Assessment/Plan Patient is a 22 year old female placed under a José Act after an argument with her mother. Patient has hx of IV Heroin use and is in the Methadone program, 2 months clean. She states that her daughter is in the custody of her mother when she went to group home . She is trying to re-establish a relationship with her daughter which has caused stress in the households. Patient is going to move back in with her boyfriend. Patient denies and SI/HI. Patient is at low risk for self harm . Will lift josé act. Patient will continue with the Methadone program. She was also given information on SMA. Orders Orders Electrocardiogram (01/19/18 03:24) Ckmb (Isoenzyme) Profile (01/19/18 03:24) Complete Blood Count With Diff (01/19/18 03:24) Magnesium (Mg) (01/19/18 03:24) Prothrombin Time / Inr (Pt) (01/19/18 03:24) Act Partial Throm Time (Ptt) (01/19/18 03:24) Troponin I (01/19/18 03:24) Ecg Monitoring (01/19/18 03:24) Iv Access Insert/Monitor (01/19/18 03:24) Oximetry (01/19/18 03:24) Oxygen Administration (01/19/18 03:24) Sodium Chloride 0.9% Flush (Ns Flush) (01/19/18 03:30) Chest, Pa & Lat (01/19/18 03:24) Ed Urine Pregnancytest Poc (01/19/18 03:24) Thyroid Stimulating Hormone (01/19/18 03:24) Psych Screen (01/19/18 03:24) Drug Screen, Random Urine (01/19/18 03:24) Alcohol (Ethanol) (01/19/18 03:24) Beta Hcg (Quant/Titer) (01/19/18 03:24) D-Dimer (01/19/18 03:24) Comprehensive Metabolic Panel (01/19/18 03:42) CKMB (01/19/18 03:42) CKMB% (01/19/18 03:42) Sodium Polysty Sulfate Liq (Kayexalate L (01/19/18 04:45) Diet Regular Basic (01/19/18 Breakfast) Ed Discharge Order (01/19/18 09:34) Results Vital Signs Date Time Temp Pulse Resp B/P (MAP) Pulse Ox O2 Delivery O2 Flow Rate FiO2 01/19/18 09:55 01/19/18 09:35 77 18 113/64 (80) 97 Room Air 01/19/18 03:44 99 Room Air 01/19/18 03:12 97.7 80 16 137/85 (102) 100 Laboratory Tests Test 01/19/18 03:42 White Blood Count 7.8 Red Blood Count 4.69 Hemoglobin 13.2 Hematocrit 38.7 Mean Corpuscular Volume 82.4 Mean Corpuscular Hemoglobin 28.1 Mean Corpuscular Hemoglobin Concent 34.1 Red Cell Distribution Width 14.6 Platelet Count 179 Mean Platelet Volume 9.6 Neutrophils (%) (Auto) 72.2 Lymphocytes (%) (Auto) 19.1 Monocytes (%) (Auto) 8.1 Eosinophils (%) (Auto) 0.5 Basophils (%) (Auto) 0.1 Neutrophils # (Auto) 5.6 Lymphocytes # (Auto) 1.5 Monocytes # (Auto) 0.6 Eosinophils # (Auto) 0.0 Basophils # (Auto) 0.0 CBC Comment DIFF FINAL Differential Comment Prothrombin Time 10.3 Prothromb Time International Ratio 1.0 Activated Partial Thromboplast Time 27.3 D-Dimer Quantitative (PE/DVT) 0.38 Blood Urea Nitrogen 12 Creatinine 0.85 Random Glucose 81 Total Protein 8.0 Albumin 3.7 Calcium Level 8.6 Magnesium Level 2.0 Alkaline Phosphatase 73 Aspartate Amino Transf (AST/SGOT) 68 Alanine Aminotransferase (ALT/SGPT) 36 Total Bilirubin 0.4 Sodium Level 136 Potassium Level 5.4 Chloride Level 107 Carbon Dioxide Level 19.8 Anion Gap 9 Estimat Glomerular Filtration Rate 84 Total Creatine Kinase 219 Creatine Kinase MB 1.1 Creatine Kinase MB % 0.5 Troponin I LESS THAN 0.02 Thyroid Stimulating Hormone 3rd Gen 1.260 Human Chorionic Gonadotropin, Quant LESS THAN 1 Ethyl Alcohol Level LESS THAN 3 Diagnosis Primary Impression: Adjustment disorder with disturbance of emotion [facility] Departure Forms: Tests/Procedures Patient Instructions: General Instructions, Mood Disorders (ED) Disposition: 01 DISCHARGE HOME Condition: Stable Inez Chong Jan 19, 2018 10:19
--- NOTE | 2018-01-19 14:31 | EKG ---
Date Performed: 01/19/2018 Time Performed: 03:40:04 PTAGE: 22 years EKG: Sinus rhythm NORMAL ECG NO PREVIOUS TRACING DOCTOR: Manjinder Shane Interpretating Date/Time 01/19/2018 14:29:43
== END 2018-01-19 10:10 | disposition home or self-care (01) ==
LOC: NEPD 03:06
DX: F43.25 Adjustment disorder with mixed disturbance of emotions and conduct (principal); R07.9 Chest pain, unspecified; F41.9 Anxiety disorder, unspecified; Z72.0 Tobacco use; F12.90 Cannabis use, unspecified, uncomplicated; Z79.899 Other long term (current) drug therapy
CPT/HCPCS: 71046; 80053; 80307; 82550; 82552; 83735; 84443; 84484; 84702; 84703; 85025; 85379; 85610; 85730; 93005; 99285